=== PATIENT | female | born 1945 | race American Indian/Alaskan Native ===

== ENCOUNTER 2019-01-08 08:46 | Outpatient (CLI) | payer MEDICARE, OTHER ==
--- NOTE | 2019-01-08 16:33 | Mammography Report ---
BILATERAL DIGITAL SCREENING MAMMOGRAM with CAD: 01/08/19 08:46:00 CLINICAL: Routine screening. COMPARISON:07/25/11 FINDINGS: The breasts are almost entirely fatty. No mass, architectural distortion or suspicious calcifications. IMPRESSION: No mammographic evidence of malignancy. BI-RADS CATEGORY: 2 -- Benign RECOMMENDATION: Routine mammographic screening in one year. COMMENT: Patient follow-up letters are generated by our [employer] application.
== END 2019-01-08 08:47 | disposition home or self-care (01) ==
LOC: MAMMO 08:46
PROVIDERS: ATTEND Internal Medicine
DX: Z12.31 Encounter for screening mammogram for malignant neoplasm of breast (principal)
CPT/HCPCS: 77067

== ENCOUNTER 2020-01-07 09:01 | Outpatient (CLI) | payer MEDICARE ==
--- NOTE | 2020-01-07 14:14 | Nuclear Medicine Report ---
NM parathyroid scan INDICATION: HYPERCALCEMIA E83.52. TECHNIQUE: 20.5 mCi of technetium 99m labeled sestamibi is administered and imaging performed COMPARISON: No relevant prior imaging study available. FINDINGS: There is uptake in the thyroid gland on the initial images. On delayed images there is no residual ac tivity seen. No parathyroid adenomas are identified. IMPRESSION: 1. No significant scintigraphic abnormality.. This is a normal exam. No parathyroid adenomas are seen . Signer Name: Omega Trinh MD Signed: 01/07/2020 2:09 PM Workstation Name: [id number]
== END 2020-01-07 09:02 | disposition home or self-care (01) ==
LOC: NM 09:01
PROVIDERS: ATTEND Internal Medicine
DX: E83.52 Hypercalcemia (principal)
CPT/HCPCS: 78070; A9500